=== PATIENT | male | born 1985 | race Two or more races ===

== ENCOUNTER 2023-05-20 00:07 | Emergency (ER) | payer MEDICAID, OTHER ==
[~2023-05-20] VITALS: Ht 172.7 cm; Wt 100.0 kg
[2023-05-20 01:09] VITALS: BP 149/91; PULSE 60; RESP 20; TEMP 98.1; O2SAT 98
[2023-05-20] MEDS: FLUORESCEIN SOD OPTH TEST STRIP EACHEYE ONE (03:09)
[2023-05-20] MEDS: HYDROcodone-ACET 5/325MG TAB PO ONE (03:09)
[2023-05-20] MEDS ORDERED: GENT0.3S10 EACHEYE (03:11)
[2023-05-20] MEDS ORDERED: HYDR-4902 PO (03:11)
== END 2023-05-20 03:22 | disposition home or self-care (01) ==
LOC: ER 00:07
DX: H16.8 Other keratitis (principal); Z79.2 Long term (current) use of antibiotics; Z79.899 Other long term (current) drug therapy